=== PATIENT | male | born 1965 | race Caucasian/White ===

== ENCOUNTER 2019-04-04 16:42 | Emergency (ER) | payer MEDICARE ==
--- NOTE | 2019-04-04 16:50 | NUR ---
NO ANSWER X 1
--- NOTE | 2019-04-04 17:00 | NUR ---
NO ANSWER X2
--- NOTE | 2019-04-04 17:18 | NUR ---
NO ANSWER X 3
== END 2019-04-04 17:20 | disposition left against medical advice (07) ==
LOC: ED 17:14
DX: R10.9 Unspecified abdominal pain (principal); Z53.21 Procedure and treatment not carried out due to patient leaving prior to being seen by health care provider